=== PATIENT | male | born 1965 | race Caucasian/White ===

== ENCOUNTER 2021-06-11 10:30 | Outpatient (CLI) | payer BC ==
[2021-06-11] MEDS ORDERED: ESOM40CA17 PO (11:44)
[2021-06-11] MEDS ORDERED: DULO60CA65 PO (11:44)
[2021-06-11] MEDS ORDERED: TEST200V33 IM (11:44)
[2021-06-11] MEDS ORDERED: ALPR0.5T9 PO (11:44)
[2021-06-11 12:10] LABS: BASOPHILS % (AUTO) 0.7 % (0-1); EOSINOPHILS # (AUTO) 0.2 X10'3 (0-0.9); EOSINOPHILS % (AUTO) 3.6 % (0-6); LYMPHOCYTES # (AUTO) 0.4 X10'3 (1.1-4.8); LYMPHOCYTES % (AUTO) 8.5 % (21-51); MEAN CORPUSCULAR HEMOGLOBIN 23.5 PG (27.0-31.0); MEAN CORPUSCULAR HGB CONC 32.5 g/dL (33.0-36.5); MEAN CORPUSCULAR VOLUME 72.5 FL (78-98); MEAN PLATELET VOLUME 7.4 FL (7.4-10.4); MONOCYTES # (AUTO) 0.6 X10'3 (0-0.9); MONOCYTES % (AUTO) 12.5 % (2-12); NEUTROPHILS # (AUTO) 3.8 X10'3 (1.8-7.7); NEUTROPHILS % (AUTO) 74.7 % (42-75); PRE OP HEMATOCRIT 46.8 % (42.0-52.0); PRE OP HEMOGLOBIN 15.2 g/dL (14.0-17.9); PRE OP PLATELET COUNT 298 X10'3 (140-440); RED BLOOD COUNT 6.46 X10'6 (4.70-6.10); RED CELL DISTRIBUTION WIDTH 17.5 % (11.5-14.5)
[2021-06-11 12:25] LABS: PRE OP PROTIME 10.4 SECONDS (9.0-12.0)
[2021-06-11 12:32] LABS: ALBUMIN 3.7 G/DL (3.4-5.0); ALBUMIN/GLOBULIN RATIO 1.1 (1.1-1.5); ALKALINE PHOSPHATASE 78 IU/L (46-116); BLOOD UREA NITROGEN 16 MG/DL (7-18); BUN/CREATININE RATIO 14.2 (5.4-32.0); CALCIUM 8.8 MG/DL (8.5-10.1); CHLORIDE 104 MMOL/L (99-107); CREATININE 1.13 MG/DL (0.60-1.10); PRE OP ALT 25 U/L (30-65); PRE OP ANION GAP 8 (8-16); PRE OP AST 15 U/L (10-37); PRE OP BILIRUB, TOTAL 0.4 MG/DL (0.0-1.0); PRE OP GLUCOSE 112 MG/DL (70-104); PRE OP POTASSIUM 4.1 MMOL/L (3.4-5.1); PRE OP SODIUM 139 MMOL/L (135-145); TOTAL CARBON DIOXIDE 27.2 MMOL/L (24-32); TOTAL PROTEIN 7.1 G/DL (6.4-8.2); eGFR 67 ML/MIN
== END 2021-06-11 23:59 | disposition home or self-care (01) ==
LOC: PRE-OP 10:30 → EDSTATUS 06-19 08:00
PROVIDERS: ATTEND Otolaryngology
DX: Z01.818 Encounter for other preprocedural examination (principal); J34.2 Deviated nasal septum; J34.3 Hypertrophy of nasal turbinates; Z20.822 Contact with and (suspected) exposure to COVID-19; Z79.01 Long term (current) use of anticoagulants
CPT/HCPCS: 36415; 80053; 85025; 85576; 85610; 85730; 93005; U0003; U0005

== ENCOUNTER 2021-07-10 10:46 | Day surgery (SDC) | payer BC ==
[2021-07-03 15:04] LABS: BASOPHILS % (AUTO) 0.3 % (0-1); EOSINOPHILS # (AUTO) 0.2 X10'3 (0-0.9); EOSINOPHILS % (AUTO) 4.8 % (0-6); LYMPHOCYTES # (AUTO) 0.6 X10'3 (1.1-4.8); LYMPHOCYTES % (AUTO) 13.5 % (21-51); MEAN CORPUSCULAR HEMOGLOBIN 22.8 PG (27.0-31.0); MEAN CORPUSCULAR HGB CONC 31.3 g/dL (33.0-36.5); MEAN CORPUSCULAR VOLUME 72.8 FL (78-98); MEAN PLATELET VOLUME 7.1 FL (7.4-10.4); MONOCYTES # (AUTO) 0.6 X10'3 (0-0.9); NEUTROPHILS # (AUTO) 3.2 X10'3 (1.8-7.7); NEUTROPHILS % (AUTO) 69.4 % (42-75); PRE OP HEMATOCRIT 46.7 % (42.0-52.0); PRE OP HEMOGLOBIN 14.6 g/dL (14.0-17.9); PRE OP PLATELET COUNT 247 X10'3 (140-440); RED BLOOD COUNT 6.42 X10'6 (4.70-6.10); RED CELL DISTRIBUTION WIDTH 18.7 % (11.5-14.5)
[2021-07-03 15:17] LABS: PRE OP PROTIME 10.7 SECONDS (9.0-12.0)
[2021-07-03 15:30] LABS: ALBUMIN/GLOBULIN RATIO 1.1 (1.1-1.5); ALKALINE PHOSPHATASE 65 IU/L (46-116); BLOOD UREA NITROGEN 12 MG/DL (7-18); BUN/CREATININE RATIO 10.9 (5.4-32.0); CHLORIDE 104 MMOL/L (99-107); PRE OP ALT 24 U/L (30-65); PRE OP ANION GAP 6 (8-16); PRE OP AST 13 U/L (10-37); PRE OP BILIRUB, TOTAL 0.3 MG/DL (0.0-1.0); PRE OP GLUCOSE 91 MG/DL (70-104); PRE OP SODIUM 140 MMOL/L (135-145); TOTAL CARBON DIOXIDE 30.4 MMOL/L (24-32); TOTAL PROTEIN 7.5 G/DL (6.4-8.2); eGFR 69 ML/MIN
[2021-07-03 15:44] LABS: PLATELET ESTIMATE NORMAL
[2021-07-03 15:45] LABS: ANISOCYTOSIS 2+; MICROCYTOSIS 1+
[~2021-07-10] VITALS: Ht 177.8 cm; Wt 102.1 kg
[2021-07-10] VITALS (15 sets, daily range): BP systolic 141–153; BP diastolic 86–103
[~2021-07-10 10:46] MED LIST: ALPR0.5T9 PO; DULO60CA65 PO; ESOM40CA17 PO; LIDOcaine 1% W/epiNEPHrine 1:100,000 20ml vial ONE; TEST200V33 IM; cocaine 4% topical solution 4ml bottle ONE; diazepam 5mg tablet PO ONE; famotidine 20mg tablet PO ONE; methylPREDNISolone acetate 80mg/ml inj**IM only ONE; oxymetazoline 15 ML nasal spray NS ONE; ringers solution, lacted 1,000 ML IV SCH
[2021-07-10] MEDS ORDERED: labetalol 20mg/4ml (5mg/ml) syringe IV PRN (11:50)
[2021-07-10] MEDS ORDERED: fentaNYL/PF 50MCG/1 ML 2ML syringe IV PRN ×2 (11:50)
[2021-07-10] MEDS ORDERED: hydrALAZINE 20mg/ml inj. IV PRN (11:50)
[2021-07-10] MEDS ORDERED: morphine 4 MG/ML inj SYRINge IV PRN (11:50)
[2021-07-10] MEDS ORDERED: ringers solution, lacted 1,000 ML IV SCH (11:50)
[2021-07-10] MEDS ORDERED: morphine 2 MG/ML inj. syringe IV PRN (11:50)
[2021-07-10] MEDS ORDERED: ondansetron/PF 4mg/2ml inj IV PRN (11:50)
[2021-07-10] MEDS: oxymetazoline 15 ML nasal spray NS PRN ×2 (12:01→13:46)
[2021-07-10] MEDS ORDERED: sevoflurane 250ml liquid IH ONE (12:41)
[2021-07-10] MEDS ORDERED: ePHEDrine 50MG/ML INJ. ONE (12:41)
[2021-07-10] MEDS ORDERED: ondansetron/PF 4mg/2ml inj ONE (12:41)
[2021-07-10] MEDS ORDERED: fentaNYL/PF 50MCG/1 ML 2ML syringe ONE (12:51)
[2021-07-10] MEDS ORDERED: midazolam 1 mg/ML 2ml injection ONE (12:52)
[2021-07-10] MEDS ORDERED: dexamethasone sod phosphate 4mg/ml inj. ONE (12:59)
[2021-07-10] MEDS ORDERED: propofol inj 20 ML IV ONE (13:01)
[2021-07-10] MEDS ORDERED: LIDOcaine 2% (20mg/ml) 5ml vial ONE (13:01)
[2021-07-10] MEDS ORDERED: mupirocin 2% ointment 22GM ONE (13:47)
--- NOTE | 2021-07-10 15:45 | NUR ---
PTS OXYGENATION IMPROVED, PT NOW MORE AWAKE. PT COMPLAINING OF MILD PRESSURE PAIN BEHIND HIS EYES. ANESTHESIOLOGIST CALLED, ORDER RECEIVED TO MEDICATE PT WITH A ONE TIME DOSE OF NORCO 5 MG NOW
[2021-07-10] MEDS ORDERED: HYDROcodone/acetaminophen 5mg/325mg tablet PO ONE (15:50)
[2021-07-10] MEDS ORDERED: salt irrigation nasal spray 45 ML SPRAY NS SCH (16:11)
--- NOTE | 2021-07-10 16:37 | NUR ---
PT MEDICATED WITH NORCO WITH GOOD RESULTS, INDEPTH DISCHARGE INSTRUCTIONS GIVEN, PT VERBALIZED UNDERSTANDING AND COPIES OF ALL PAPERWORK GIVEN TO PATIENT. AWAITING PT TO URINATE.
--- NOTE | 2021-07-10 17:06 | NUR ---
PT UP AND ABLE TO AMBULATED, TOLERATING ORAL FLUIDS, PT WAS ABLE TO VOID, STATED MODERATE AMOUNT OF URINE. INSTRUCTIONS GIVEN, PT D/VAL TO HOME VIA WHEELCHAIR TO PRIVATE VEHICLE WITHOUT INCIDENCE. Addendum: 07/10/21 at 1724 by Edelmira Mccarthy RN Amended: Links added.
== END 2021-07-10 17:06 | disposition home or self-care (01) ==
LOC: PAS 10:46
PROVIDERS: ATTEND Otolaryngology
DX: J32.8 Other chronic sinusitis (principal); J33.8 Other polyp of sinus; J34.89 Other specified disorders of nose and nasal sinuses; J45.909 Unspecified asthma, uncomplicated; D64.9 Anemia, unspecified; F32.9 Major depressive disorder, single episode, unspecified; F41.9 Anxiety disorder, unspecified; Z98.890 Other specified postprocedural states; Z20.822 Contact with and (suspected) exposure to COVID-19; Z79.899 Other long term (current) drug therapy; Z79.01 Long term (current) use of anticoagulants
CPT/HCPCS: 31253; 31259; 31267; 36415; 80053; 82948; 85025; 85576; 85610; 85730; 87070; 87075; 87077; 87186; 87635; A6402; C9250; C9803; J1040; J1100; J2250; J2405; J2704; J3010; J3490; J7030; J7040; J7120; U0003; U0005; Z7506; Z7508; Z7512; 85008; A4618; A7000